=== PATIENT | male | born 1965 | race American Indian/Alaskan Native ===

== ENCOUNTER 2017-06-21 08:25 | Emergency (ER) | payer SELFPAY ==
[2017-06-21 08:35] VITALS: BP 121/76
--- NOTE | 2017-06-21 10:15 | Emergency Department Report ---
ED Recheck HPI - General Chief Complaint: Skin Rash Stated Complaint: MED REFILL/FACE BURNING Time Seen by Provider: 06/21/17 09:07 Source: patient Mode of arrival: Ambulatory Limitations: No Limitations - History of Present Illness Initial Comments: Patient reports that he is here for refill on medication for his psoriasis to include triamcinolone 1 pound jar and Diprolene lotion for psoriasis of the scalp. Patient said he just moved to [place] and his insurance is not in place as yet and he does not have a director ambulatory but he does have peripheral of taking medications. He states that he has a psoriasis flare up and would like refill and also requested multiple refills. I discussed with him I cannot refill multiple refill he will have to follow up with director ambulatory and also primary care physician. MD Complaint: medication refill request Initial Visit For: other (none) Returns Today for: request for prescription (requesting medication refill for psoriasis) Symptoms Since Prior Visit: no new symptoms Context: ran out of medication Associated Symptoms: rash, other (itching) Treatments Prior to Arrival: other (steroid cream) - Related Data Previous Rx's Medication Instructions Recorded Last Taken Type Betamethasone Dipropionate 60 ml TP Q12H #1 lotion 06/21/17 Unknown Rx [Betamethasone Dipropionate Lotion] Triamcinolone 0.1% [Kenalog 0.1% 464 gm TP BID #1 tub 06/21/17 Unknown Rx OINT] methylPREDNISolone [Medrol] 4 mg PO QAM 6 Days #1 tab.ds.pk 06/21/17 Unknown Rx Allergies Allergy/AdvReac Type Severity Reaction Status Date / Time haloperidol [From Haldol] AdvReac Unknown Verified 06/21/17 08:36 ED Review of Systems ROS: Stated complaint: MED REFILL/FACE BURNING Other details as noted in HPI Comment: All other systems reviewed and negative Constitutional: no symptoms reported Eyes: denies: eye pain, eye discharge Respiratory: no symptoms reported Cardiovascular: denies: chest pain, palpitations, edema, syncope Gastrointestinal: denies: abdominal pain, nausea, vomiting, diarrhea Skin: rash, pruritus, other (medication refill for psoriasis) Neurological: denies: headache ED Past Medical Hx - Past Medical History Previous Medical History?: Yes Hx Psychiatric Treatment: Yes Additional medical history: Psoriasis - Surgical History Past Surgical History?: No - Family History Family history: no significant - Social History Smoking Status: Never Smoker Substance Use Type: None - Medications Home Medications: Home Medications Medication Instructions Recorded Confirmed Last Taken Type Betamethasone Dipropionate 60 ml TP Q12H #1 lotion 06/21/17 Unknown Rx [Betamethasone Dipropionate Lotion] Triamcinolone 0.1% [Kenalog 0.1% 464 gm TP BID #1 tub 06/21/17 Unknown Rx OINT] methylPREDNISolone [Medrol] 4 mg PO QAM 6 Days #1 tab.ds.pk 06/21/17 Unknown Rx ED Physical Exam - General Limitations: No Limitations General appearance: alert, in no apparent distress - Head Head exam: Present: atraumatic, normocephalic, normal inspection - Eye Eye exam: Present: normal appearance, PERRL, EOMI Pupils: Present: normal accommodation - ENT ENT exam: Present: normal exam, normal orophraynx, mucous membranes moist - Neck Neck exam: Present: normal inspection, full ROM, other (no C-spine tenderness). Absent: tenderness, meningismus, lymphadenopathy, thyromegaly - Respiratory Respiratory exam: Present: normal lung sounds bilaterally. Absent: respiratory distress, chest wall tenderness, accessory muscle use - Cardiovascular Cardiovascular Exam: Present: regular rate, normal rhythm, normal heart sounds. Absent: systolic murmur, diastolic murmur - GI/Abdominal GI/Abdominal exam: Present: soft, normal bowel sounds. Absent: distended, tenderness, guarding, rebound, rigid - Extremities Exam Extremities exam: Present: normal inspection, full ROM, normal capillary refill , other (no C-spine tenderness). Absent: tenderness, pedal edema, joint swelling, calf tenderness - Back Exam Back exam: Present: normal inspection, full ROM, other (ambulates without any difficulties). Absent: tenderness, CVA tenderness (R), CVA tenderness (L), muscle spasm, paraspinal tenderness, vertebral tenderness, rash noted - Neurological Exam Neurological exam: Present: alert, oriented X3, normal gait, motor sensory deficit. Absent: reflexes normal - Psychiatric Psychiatric exam: Present: normal affect, normal mood - Skin Skin exam: Present: warm, dry, rash, other (patient with dry scaly areas with scaling and plaques scattered sparsely to body surface and also to scalp) ED Course Vital Signs 06/21/17 08:31 Temperature 98 F Pulse Rate 80 Respiratory 18 Rate Blood Pressure 121/76 O2 Sat by Pulse 97 Oximetry - Reevaluation(s) Reevaluation #1: 06/21/17 11:11 She is stable throughout ED stay ED Recheck MDM - Medical Decision Making ED course: This is a 52-year-old male with chronic psoriasis to his body surface to include his scalp. He said [place] and is insurance is not activated as of yet. Patient said he ran out of his medication to include triamcinolone 1 pound jar and medication for his scalp which is a steroid lotion. Patient does have full of medication as evident by prescription on his phone. I discussed patient he'll need to find a director ambulatory and also primary care physician and I'll refer him to [facility] who goes by sliding scale C and also to Dr. Hendrickson was a director ambulatory for him to follow-up once he get his insurance in place for management of chronic psoriasis. Patient was understanding and discharged home a prescription for triamcinolone cream and Dipoline steroid lotion for scalp. Critical care attestation.: If time is entered above; I have spent that time in minutes in the direct care of this critically ill patient, excluding procedure time. ED Disposition Clinical Impression: Psoriasis, Dermatitis, Pruritus of skin Disposition: [id number] TO HOME OR SELFCARE Is pt being admited?: No Does the pt Need Aspirin: No Condition: Stable Instructions: Psoriasis (ED), Itchy Skin (ED) Additional Instructions: Please follow up with director ambulatory and also at [facility] Please state medication as prescribed Increase her fluid intake and keep affected areas clean and dry Prescriptions: Betamethasone Dipropionate [Betamethasone Dipropionate Lotion] 60 ml TP Q12H #1 lotion methylPREDNISolone [Medrol] 4 mg PO QAM 6 Days #1 tab.ds.pk Triamcinolone 0.1% [Kenalog 0.1% OINT] 464 gm TP BID #1 tub Referrals: [facility] [Outside] - 3-5 Days DOTTIE DORSEY MD [Staff Physician] - 3-5 Days Forms: Work/School Release Form(ED)
== END 2017-06-21 11:52 | disposition home or self-care (01) ==
LOC: ED 08:25
DX: L40.9 Psoriasis, unspecified (principal); Z88.8 Allergy status to other drugs, medicaments and biological substances
CPT/HCPCS: 99281